=== PATIENT | female | born 1950 | race Caucasian/White ===

== ENCOUNTER 2022-10-26 10:40 | Outpatient (CLI) | payer MEDICARE ==
[2022-10-26 11:37] LABS: Bilirubin Unable to Interpret (Negative); Blood, Urine Unable to Interpret (Negative); Clarity Cloudy (Clear); Glucose, Urine (Dipstick) Normal (Negative); Ketone, Urine Negative (Negative); Leukocyte Unable to Interpret (Negative); Nitrite Unable to Interpret (Negative); Protein, Urine (Dipstick) Unable to Interpret mg/dl (Neg-Trace); Specific Gravity, Urine 1.015 (1.005-1.030); Urobilinogen UNABLE TO INTERPRET mg/dL (Less than 2)
[2022-10-26 11:44] LABS: Bacteria/HPF Rare-Few HPF (None Seen); RBC/HPF 21-50 HPF (0-3); WBC/HPF 21-50 HPF (0-3)
[2022-10-26 12:36] LABS: Hematocrit 34.5 % (34.9-44.5); Hemoglobin 11.5 g/dL (12.0-15.5); Mean Corpuscular HGB CONC 33.3 g/dL (32.0-36.0); Mean Corpuscular Hemoglobin 29.6 pg (27.0-33.0); Mean Corpuscular Volume 88.7 fl (81.6-98.3); Mean Platelet Volume 10.4 fl (7.4-10.4); Platelet Count 266 10x3/uL (150-450); RBC Distribution Width 14.1 % (11.5-14.5); Red Blood Cell (RBC) Count 3.89 10x6/uL (3.90-5.03); White Blood Cell (WBC) Count 8.2 10x3/uL (3.5-10.5)
[2022-10-26 13:03] LABS: PTT 28.3 sec (22.0-33.0); Prothrombin Time 10.5 sec (9.5-12.1)
[2022-10-26 13:15] LABS: Anion Gap 14 mmol/L (10-20); BUN (Urea Nitrogen) 17 mg/dL (9.8-20.1); Calc. Creatinine Clearance 0 mL/min (70-130); Carbon Dioxide 25 mmol/L (23-31); Chloride 106 mmol/L (98-107); Estimated GFR 78; Glucose 74 mg/dL (83-110); Potassium 3.6 mmol/L (3.5-5.1); Sodium 141 mmol/L (136-145)
== END 2022-10-26 10:41 | disposition home or self-care (01) ==
LOC: LABBT 10:40
PROVIDERS: ATTEND Urology
DX: Z01.818 Encounter for other preprocedural examination (principal); N20.0 Calculus of kidney
CPT/HCPCS: 80048; 81001; 85027; 85610; 85730; 87086; 93005; 93010

== ENCOUNTER 2022-10-28 10:07 | Day surgery (SDC) | payer MEDICARE ==
[2022-10-26 11:41] VITALS: BMI 32.3
[2022-10-28] MEDS ORDERED: LevoFLOXacin 500 mg/D5W 100 ML BAG ONE (12:15)
[2022-10-28] MEDS ORDERED: fentaNYL PF 100 MCG/2 ML SYRINGE ONE (12:16)
[2022-10-28] MEDS ORDERED: PROPOFOL 200 MG/20 ML VIAL ONE (12:33)
[2022-10-28] MEDS ORDERED: Dexamethasone 20 MG/5 ML VIAL ONE (12:33)
[2022-10-28] MEDS ORDERED: ePHEDrine Sulfate 50 MG/10 ML VIAL ONE (12:33)
[2022-10-28] MEDS ORDERED: Ondansetron PF 4 MG/2 ML Vial ONE (12:33)
[2022-10-28] MEDS ORDERED: Lidocaine 1% PF 5 ML VIAL ONE (12:33)
[2022-10-28] MEDS ORDERED: Phenazopyridine HCl 100 MG TAB ONE (13:56)
[2022-10-28] MEDS ORDERED: Oxybutynin 5 MG TAB ONE (13:56)
== END 2022-10-28 14:56 | disposition home or self-care (01) ==
LOC: SDC 10:07
PROVIDERS: ATTEND Urology
PROC: 0TF48ZZ Fragmentation in Left Kidney Pelvis, Via Natural or Artificial Opening Endoscopic (ICD-10-PCS; principal; 2022-10-28)
PROC: 0TF68ZZ Fragmentation in Right Ureter, Via Natural or Artificial Opening Endoscopic (ICD-10-PCS; 2022-10-28)
PROC: 0TF78ZZ Fragmentation in Left Ureter, Via Natural or Artificial Opening Endoscopic (ICD-10-PCS; 2022-10-28)
PROC: 0TF38ZZ Fragmentation in Right Kidney Pelvis, Via Natural or Artificial Opening Endoscopic (ICD-10-PCS; 2022-10-28)
PROC: 0T788DZ Dilation of Bilateral Ureters with Intraluminal Device, Via Natural or Artificial Opening Endoscopic (ICD-10-PCS; 2022-10-28)
DX: N20.2 Calculus of kidney with calculus of ureter (principal); K21.9 Gastro-esophageal reflux disease without esophagitis; E78.5 Hyperlipidemia, unspecified; I10 Essential (primary) hypertension; N13.9 Obstructive and reflux uropathy, unspecified; E03.9 Hypothyroidism, unspecified; E66.9 Obesity, unspecified; Z68.32 Body mass index [BMI] 32.0-32.9, adult; Z90.710 Acquired absence of both cervix and uterus; Z90.49 Acquired absence of other specified parts of digestive tract; Z79.890 Hormone replacement therapy; Z79.899 Other long term (current) drug therapy
CPT/HCPCS: 52356; 82365; C1747; C1769; C2617; 88300; J1100; J1956; J2405; J2704